=== PATIENT | male | born 1985 | race Caucasian/White ===

== ENCOUNTER 2018-05-10 11:46 | Emergency (ER) | payer OTHER ==
[~2018-05-10] VITALS: Ht 188 cm; Wt 83.9 kg
[2018-05-10] MEDS ORDERED: CARDIZEM ONE (11:51)
--- NOTE | 2018-05-10 11:54 | NUR ---
ARRIVAL PATIENT ARRIVED TO [facility] VIA W/C WITH FAMILY, C/O OF LACERATION TO THE LEFT FOOT AND GREAT TOE. PATIENT STATES HE WAS PLAYING MUD [place] BALL AND STEPPED ON SOME GLASS, APPROX 5CM LACERATION TO THE LEFT GREAT TOE AND APPROX 3CM LACERATION TO THE BALL OF THE FOOT. ALL WOUNDS SOAKED IN BETADINE AND STERILE WATER, DOCTOR CHRISTOPHER NOTIFIED OF PATIENT ARRIVAL.
[2018-05-10] MEDS ORDERED: LIDOCAINE 1% VIAL ONE ×2 (11:59→12:02)
[2018-05-10] MEDS ORDERED: WATER ONE (12:06)
--- NOTE | 2018-05-10 12:09 | ER.PDOC ---
General Chief Complaint: Requesting Medical Care Stated Complaint: LACERATION ON FOOT Time seen by MD: 12:00 Source: patient Exam Limitations: no limitations History of Present Illness Initial Comments Pt was playing volleyball barefoot, when a piece of glass went into left foot and left first toe Onset: just prior to arrival Where: park Severity: moderate Context: laceration Modifying Factors: pain on movement Allergies: Coded Allergies: amoxicillin (Verified Allergy, Unknown, 05/10/18) Home Meds Unable to Obtain Active Prescriptions or Reported Meds Review of Systems Constitutional: no symptoms reported EENTM: no symptoms reported Respiratory: no symptoms reported Cardiovascular: no symptoms reported Gastrointestinal: no symptoms reported Genitourinary: no symptoms reported Musculoskeletal: see HPI Skin: see HPI Psychiatric/Neurological: no symptoms reported Physical Exam General Appearance: Alert, No Apparent Distress Foot: see diagram (left foot laceration on base of first toe and anterior aspect of left plantar area), tenderness Ankle: nml inspection, non-tender, nml ROM, no joint swelling, skin intact Gait: normal Neuro: sensation nml, motor nml Vascular: no vascular compromise Tendons: tendon function nml Leg/Knee/Thigh: uninjured above ankle Skin: warm/dry Head/ENT: nml inspection, pharynx nml Neck/Back: nml inspection, non-tender Resp/CVS: no resp distress Abdomen: non-tender, no organomegaly ED LACERATION WOUND REPAIR # of Wounds/Lacerations Presen: 2 Wound Length (cm): 5 Wound cleaned: betadine Distal NVT: neuro intact, vasc intact Anesthesia type: digital block Anesthesia: 1% Lidocaine Volume Anesthetic (ccs): 15 Wound's Depth, Shape: superficial, linear, subcutaneous Irrigated w/ Saline (ccs): 20 Wound Explored: clean Tendon Intact: Yes Wound Debrided: minimal Wound Repaired With: sutures Suture Size/Type: 3:0, ethilon Suture Style: interupted Number of Sutures: 11 Layer Closure?: No Sterile Dressing Applied?: Yes Sling Applied?: No Course Vitals & review Data Vital Sign - Last 24 Hours 05/10/18 05/10/18 05/10/18 12:09 12:10 12:13 Temp 98.5 98.5 98.5 Pulse 101 101 101 Resp 20 20 20 B/P (MAP) 159/94 (115) Pulse Ox 99 99 O2 Delivery Room Air Room Air Departure Time of Disposition: 12:43 Disposition: 01 HOME, SELF-CARE Impression: Primary Impression: Laceration of foot Additional Impressions: Laceration of sole of foot Laceration of toe of left foot Condition: Stable Patient Instructions: Laceration Care, Adult, [id number] Referrals: TONNY SALCEDO MD (PCP) PRIMARY CARE PROVIDER Scripts Unable to Obtain Active Prescriptions or Reported Meds Duration or Time Spent with Pa: 40 Problem Qualifiers TAWNY WHITE MD May 10, 2018 12:09
[2018-05-10 12:13] VITALS: BP 159/94
[2018-05-10] MEDS ORDERED: BOOSTRIX VACCINE SYRINGE IM ONE (12:30)
[2018-05-10] MEDS ORDERED: TRIPLE ANTIBIOTIC OINTMENT TP ONE (12:35)
[2018-05-10] MEDS ORDERED: CLEOCIN IM ONE (13:00)
[2018-05-10] MEDS ORDERED: CLEOCIN ONE (13:00)
--- NOTE | 2018-05-10 13:05 | NUR ---
sutures DOCTOR WHITE PLACED 11 SUTURES TO THE LEFT FOOT USING STERILE TECHNIQUE. PATIENT TOLERATED WELL, NEOSPORIN,TELFA AND STERILE GAUZE APPLIED TO WOUNDS AND SECURED WITH KERLEX.
[2018-05-10 13:21] VITALS: BP 159/94
== END 2018-05-10 13:16 | disposition home or self-care (01) ==
LOC: ER 11:46
DX: S91.112A Laceration without foreign body of left great toe without damage to nail, initial encounter (principal); S91.312A Laceration without foreign body, left foot, initial encounter; Z88.0 Allergy status to penicillin; W25.XXXA Contact with sharp glass, initial encounter; Y93.68 Activity, volleyball (beach) (court); Y92.39 Other specified sports and athletic area as the place of occurrence of the external cause; Y99.8 Other external cause status
CPT/HCPCS: 12002; 96372; 99283; A4649 ×2; J2001 ×2; J3490